=== PATIENT | male | born 1985 | race Hispanic/Latino ===

== ENCOUNTER 2019-07-31 17:09 | Emergency (ER) | payer OTHER, SELFPAY ==
[2019-07-31] MEDS ORDERED: Ketorolac Tromethamine 30 MG/ML VIAL ONE (17:24)
== END 2019-07-31 17:31 | disposition home or self-care (01) ==
LOC: ERS 17:09
DX: J01.00 Acute maxillary sinusitis, unspecified (principal); Z87.891 Personal history of nicotine dependence
CPT/HCPCS: 96372; 99283; J1885

== ENCOUNTER 2022-09-27 14:33 | Emergency (ER) | payer SELFPAY | END 2022-09-27 15:25 | disposition home or self-care (01) | LOC: ERS 14:33 | DX: M62.830 Muscle spasm of back (principal); Z87.891 Personal history of nicotine dependence | CPT/HCPCS: 99283 ==

== ENCOUNTER 2023-01-24 09:22 | Inpatient (IN) | payer SELFPAY ==
[2023-01-24] MEDS ORDERED: Lidocaine 1% (PF) 30 ML VIAL ONE (09:43)
[2023-01-24] MEDS ORDERED: Iopamidol 370 76% 100 ML VIAL ONE (09:43)
[2023-01-24] MEDS ORDERED: Nitroglycerin 50 MG/250 ML BOT 0 ML ONE (09:44)
[2023-01-24] MEDS ORDERED: Adenosine 6 MG/2 ML VIAL ONE (09:44)
[2023-01-24] MEDS ORDERED: Verapamil 5 MG/2 ML VIAL ONE (09:44)
[2023-01-24 09:51] LABS: #Basophils 0.1 thou/uL (0.0-0.2); #Eosinphils 0.3 thou/uL (0.0-0.7); #Monocytes 0.9 thou/uL (0.11-0.59); #Neutrophils 7.3 thou/uL (1.40-6.50); %Basophils 0.6 % (0.0-1.0); %Eosinophils 2.9 % (0.0-10.0); %Lymphocytes 26.7 % (21.0-51.0); %Monocytes 7.8 % (0.0-10.0); %Neutrophils 61.6 % (42.0-75.0); Hemoglobin 16.9 g/dL (14.0-18.0); Mean Corpuscular HGB CONC 33.9 g/dL (32.0-36.0); Mean Corpuscular Hemoglobin 28.5 pg (27.0-31.0); Mean Corpuscular Volume 84.1 fl (78.0-98.0); Platelet Count 504 10x3/uL (130-400); RBC Distribution Width 13.8 % (11.5-14.5); Red Blood Cell (RBC) Count 5.93 mill/uL (4.70-6.10); White Blood Cell (WBC) Count 11.9 10x3/uL (4.8-10.8)
[2023-01-24] MEDS ORDERED: Morphine 4 MG/ML VIAL ONE (10:01)
[2023-01-24] MEDS ORDERED: DOPamine 400 MG/D5W 250 ML 250 ML ONE (10:10)
[2023-01-24] MEDS ORDERED: PHENYLEPHRINE-NS 100 MCG/ML 10 ML SYRINGE ONE (10:10)
[2023-01-24] MEDS ORDERED: DOBUTamine 250 MG/20 ML VIAL ONE (10:12)
[2023-01-24] MEDS ORDERED: Propofol 1,000 MG/100 ML VIAL IV ONE ×2 (10:28→11:51)
[2023-01-24] MEDS ORDERED: PROPOFOL 20 ML ONE (10:28)
[2023-01-24] MEDS ORDERED: Heparin 10,000 UNITS/ 10 ML VIAL ONE (10:28)
[2023-01-24 10:54] LABS: Calcium 10.3 mg/dL (7.8-10.44); Chloride 105 mmol/L (98-107); Sodium 143 mmol/L (136-145)
[2023-01-24 10:55] LABS: Globulin 3.6 g/dL (2.4-3.5); Glucose 156 mg/dL (70-105); Protein, Total 8.6 g/dL (6.0-8.3)
[2023-01-24 10:56] LABS: Anion Gap 24 mmol/L (10-20); Carbon Dioxide 18 mmol/L (22-29)
[2023-01-24 10:57] LABS: Bilirubin, Total 0.4 mg/dL (0.2-1.2)
[2023-01-24 10:58] LABS: Alkaline Phosphatase 76 U/L (40-110); Calc. Creatinine Clearance 0 mL/min (70-130)
[2023-01-24 10:59] LABS: BUN (Urea Nitrogen) 19 mg/dL (8.9-20.6); Estimated GFR 60
[2023-01-24 11:00] LABS: AST (SGOT) 21 U/L (5-34)
[2023-01-24 11:01] LABS: ALT (SGPT) 33 U/L (8-55)
[2023-01-24] MEDS ORDERED: Tirofiban-0.9% Sodium Chloride 250 ML ONE (11:20)
[2023-01-24] MEDS ORDERED: Atropine Sulfate 1 mg/10 ml Syringe ONE (11:20)
[2023-01-24] MEDS ORDERED: Midazolam HCl 2 mg/2 ml Vial ONE (11:25)
[2023-01-24] MEDS ORDERED: TICAGRELOR 90 MG TABLET PO SCH (12:00)
[2023-01-24] MEDS: Sodium Chloride 0.9% 1,000 ML IV SCH ×2 (12:35→16:53)
[2023-01-24] MEDS ORDERED: Lorazepam 2 MG/ML VIAL ONE (12:40)
[2023-01-24] MEDS ORDERED: Fentanyl BOLUS 250 ML IVPB PRN (13:00)
[2023-01-24] MEDS ORDERED: Propofol BOLUS 1,000 MG/100 ML VIAL IV PRN (13:00)
[2023-01-24] MEDS ORDERED: Morphine 2 MG/ML VIAL SLOW IVP PRN (13:00)
[2023-01-24] MEDS ORDERED: Lorazepam 2 MG/ML VIAL SLOW IVP PRN (13:00)
[2023-01-24] MEDS: Fentanyl CADD 100 ML IV SCH (13:00)
[2023-01-24 13:23] LABS: Actual Bicarbonate (HCO3a) 20.1 mEq/L (22-28); Base Excess (BEa) -5.9 mEq/L (-2.0 to +3.0); CO2 Tension 41.4 mmHg (35.0-45.0); Calcium, Ionized (arterial) 1.14 mmol/L (1.12-1.30); Carboxyhemoglobin (COHb) 0.6 gm% (0.0-3.0); Hematocrit-ABG 45 % (42.0-52.0); Hemoglobin (Hb) 15.4 g/dL (14.0-18.0); Potassium - ABG Lab 3.78 mmol/L (3.70-5.30); pH, Arterial 7.305 (7.35-7.45)
[2023-01-24 13:24] LABS: Puncture Site RRA
[2023-01-24 13:56] LABS: Amphetamine Not Detected (NotDetected); Barbiturates Screen Not Detected (NotDetected); Benzodiazepine Screen Not Detected (NotDetected); Cocaine Metabolite Screen Not Detected (NotDetected); Methadone Not Detected (NotDetected); Methamphetamine Not Detected (NotDetected); Opiate Screen Detected (NotDetected); Oxycodone Screen Not Detected (NotDetected); Phencyclidine (PCP) Not Detected (NotDetected); THC/Cannabinoid Screen Not Detected (NotDetected); Tricyclic Screen Not Detected (NotDetected)
[2023-01-24 14:03] VITALS: BMI 37.2
[2023-01-24] MEDS ORDERED: Famotidine/PF 20 mg/2ml Vial SLOW IVP SCH (14:15)
[2023-01-24] MEDS ORDERED: Electrolyte Replacement Protocol 1 EACH FS SCH (16:00)
[2023-01-24] MEDS ORDERED: Electrolyte Replacement Protocol FS PRN (16:30)
[2023-01-24] MEDS: Propofol 1,000 MG/100 ML VIAL IV PRN ×2 (16:42→23:32)
[2023-01-24] MEDS: DOPamine 400 MG/D5W 250 ML 250 ML IVPB SCH ×2 (16:42→23:32)
[2023-01-24] MEDS: Tirofiban-0.9% Sodium Chloride 250 ML IVPB SCH (16:59)
[2023-01-24] MEDS ORDERED: Magnesium 2 GM/50 ML(in water) 2 GM in Premix Bag 1 BAG IVPB SCH (18:45)
[2023-01-24 19:06] LABS: Troponin I 125.828 ng/mL (< 0.028)
[2023-01-24] MEDS: Atorvastatin Calcium 40 MG TAB PO SCH (21:41)
[2023-01-24] MEDS: Famotidine/PF 20 mg/2ml Vial SLOW IVP SCH (21:41)
[2023-01-24] MEDS: TICAGRELOR 90 MG TABLET PO SCH (21:44)
[2023-01-25 01:19] LABS: Troponin I 129.472 ng/mL (< 0.028)
[2023-01-25 01:52] LABS: Magnesium 2.5 mg/dL (1.6-2.6)
[2023-01-25] MEDS: Sodium Chloride 0.9% 1,000 ML IV SCH ×2 (03:33→18:25)
[2023-01-25] MEDS: Tirofiban-0.9% Sodium Chloride 250 ML IVPB SCH (03:33)
[2023-01-25] MEDS: Propofol 1,000 MG/100 ML VIAL IV PRN ×3 (03:43→18:25)
[2023-01-25 03:59] LABS: #Monocytes 1.2 thou/uL (0.11-0.59); #Neutrophils 10.1 thou/uL (1.40-6.50); %Basophils 0.2 % (0.0-1.0); %Eosinophils 0.1 % (0.0-10.0); %Lymphocytes 7.1 % (21.0-51.0); %Monocytes 9.8 % (0.0-10.0); %Neutrophils 82.5 % (42.0-75.0); Hemoglobin 14.1 g/dL (14.0-18.0); Mean Corpuscular HGB CONC 33.4 g/dL (32.0-36.0); Mean Platelet Volume 9.9 fL (7.4-10.4); Platelet Count 434 10x3/uL (130-400); RBC Distribution Width 14.6 % (11.5-14.5); Red Blood Cell (RBC) Count 4.87 mill/uL (4.70-6.10); White Blood Cell (WBC) Count 12.2 10x3/uL (4.8-10.8)
[2023-01-25 04:24] LABS: ALT (SGPT) 114 U/L (8-55); AST (SGOT) 375 U/L (5-34); Alkaline Phosphatase 57 U/L (40-110); Anion Gap 16 mmol/L (10-20); BUN (Urea Nitrogen) 18 mg/dL (8.9-20.6); Bilirubin, Total 0.4 mg/dL (0.2-1.2); Calc. Creatinine Clearance 180 mL/min (70-130); Carbon Dioxide 16 mmol/L (22-29); Chloride 111 mmol/L (98-107); Estimated GFR 101; Globulin 3.1 g/dL (2.4-3.5); Glucose 137 mg/dL (70-105); Potassium 4.3 mmol/L (3.5-5.1); Protein, Total 7.1 g/dL (6.0-8.3); Sodium 139 mmol/L (136-145)
[2023-01-25 05:27] LABS: Mean Corpuscular Volume 86.7 fl (78.0-98.0)
[2023-01-25 07:23] LABS: Actual Bicarbonate (HCO3a) 20.1 mEq/L (22-28); Base Excess (BEa) -2.8 mEq/L (-2.0 to +3.0); CO2 Tension 30.1 mmHg (35.0-45.0); Calcium, Ionized (arterial) 1.15 mmol/L (1.12-1.30); Carboxyhemoglobin (COHb) 0.3 gm% (0.0-3.0); Hematocrit-ABG 41 % (42.0-52.0); Hemoglobin (Hb) 13.9 g/dL (14.0-18.0); O2 Tension (PaO2), arterial 105.6 mmHg (80.0-100.0); Potassium - ABG Lab 3.92 mmol/L (3.70-5.30); pH, Arterial 7.443 (7.35-7.45)
[2023-01-25 07:25] LABS: ALV-art Gradient 141.975 mmHg (0-20); Puncture Site RRA
[2023-01-25] MEDS: Famotidine/PF 20 mg/2ml Vial SLOW IVP SCH ×2 (09:20→23:20)
[2023-01-25] MEDS: Aspirin Chewable 81 MG TAB PO SCH (09:20)
[2023-01-25] MEDS: TICAGRELOR 90 MG TABLET PO SCH ×2 (09:20→23:20)
[2023-01-25] MEDS: Fentanyl CADD 100 ML IV SCH (12:59)
[2023-01-25] MEDS ORDERED: Sodium Chloride 0.9% 1,000 ML IV SCH (18:30)
[2023-01-25] MEDS ORDERED: Furosemide 20 MG/2 ML VIAL SLOW IVP SCH (18:30)
[2023-01-25] MEDS: Atorvastatin Calcium 40 MG TAB PO SCH (23:20)
[2023-01-26] MEDS: Propofol 1,000 MG/100 ML VIAL IV PRN (01:18)
[2023-01-26 07:02] LABS: #Eosinphils 0.1 thou/uL (0.0-0.7); #Monocytes 1.1 thou/uL (0.11-0.59); #Neutrophils 7.2 thou/uL (1.40-6.50); %Basophils 0.4 % (0.0-1.0); %Eosinophils 0.9 % (0.0-10.0); %Lymphocytes 13.5 % (21.0-51.0); %Neutrophils 73.7 % (42.0-75.0); Hemoglobin 12.6 g/dL (14.0-18.0); Mean Corpuscular HGB CONC 33.1 g/dL (32.0-36.0); Mean Corpuscular Volume 87.6 fl (78.0-98.0); Mean Platelet Volume 9.7 fL (7.4-10.4); Platelet Count 352 10x3/uL (130-400); RBC Distribution Width 14.7 % (11.5-14.5); Red Blood Cell (RBC) Count 4.35 mill/uL (4.70-6.10); White Blood Cell (WBC) Count 9.8 10x3/uL (4.8-10.8)
[2023-01-26 07:25] LABS: Lactic Acid 0.8 mmol/L (0.5-2.2)
[2023-01-26 07:27] LABS: Anion Gap 14 mmol/L (10-20); BUN (Urea Nitrogen) 21 mg/dL (8.9-20.6); Calc. Creatinine Clearance 199 mL/min (70-130); Carbon Dioxide 21 mmol/L (22-29); Chloride 110 mmol/L (98-107); Estimated GFR 113; Glucose 92 mg/dL (70-105); Potassium 3.9 mmol/L (3.5-5.1); Sodium 141 mmol/L (136-145)
[2023-01-26] MEDS: Famotidine/PF 20 mg/2ml Vial SLOW IVP SCH ×2 (09:39→20:03)
[2023-01-26] MEDS ORDERED: Piperacillin/Tazobactam 2.25 GM in Sodium Chloride 0.9% 100 ML IVPB SCH ×2 (10:00→14:00)
[2023-01-26] MEDS: TICAGRELOR 90 MG TABLET PO SCH ×2 (13:19→20:03)
[2023-01-26] MEDS: Aspirin Chewable 81 MG TAB PO SCH (13:19)
[2023-01-26] MEDS: Piperacillin/Tazobactam 3.375 GM in Sodium Chloride 0.9% 100 ML IVPB SCH (20:02)
[2023-01-26] MEDS: Atorvastatin Calcium 40 MG TAB PO SCH (20:03)
[2023-01-27] MEDS: Piperacillin/Tazobactam 3.375 GM in Sodium Chloride 0.9% 100 ML IVPB SCH ×3 (03:55→20:34)
[2023-01-27 04:35] LABS: #Basophils 0.1 thou/uL (0.0-0.2); #Eosinphils 0.1 thou/uL (0.0-0.7); #Monocytes 0.9 thou/uL (0.11-0.59); #Neutrophils 8.3 thou/uL (1.40-6.50); %Basophils 0.5 % (0.0-1.0); %Eosinophils 1.2 % (0.0-10.0); %Lymphocytes 10.4 % (21.0-51.0); %Monocytes 8.4 % (0.0-10.0); %Neutrophils 79.1 % (42.0-75.0); Hemoglobin 11.8 g/dL (14.0-18.0); Mean Corpuscular HGB CONC 32.2 g/dL (32.0-36.0); Mean Corpuscular Hemoglobin 28.9 pg (27.0-31.0); Mean Platelet Volume 10.7 fL (7.4-10.4); Platelet Count 366 10x3/uL (130-400); RBC Distribution Width 16.2 % (11.5-14.5); Red Blood Cell (RBC) Count 4.08 mill/uL (4.70-6.10); White Blood Cell (WBC) Count 10.4 10x3/uL (4.8-10.8)
[2023-01-27 06:15] LABS: Anion Gap 13 mmol/L (10-20); BUN (Urea Nitrogen) 16 mg/dL (8.9-20.6); Calc. Creatinine Clearance 222 mL/min (70-130); Carbon Dioxide 25 mmol/L (22-29); Chloride 105 mmol/L (98-107); Estimated GFR 116; Glucose 93 mg/dL (70-105); Potassium 3.7 mmol/L (3.5-5.1); Sodium 139 mmol/L (136-145)
[2023-01-27] MEDS: Aspirin Chewable 81 MG TAB PO SCH (08:25)
[2023-01-27] MEDS: Famotidine/PF 20 mg/2ml Vial SLOW IVP SCH ×2 (08:25→20:35)
[2023-01-27] MEDS: Clopidogrel Bisulfate 75 MG TAB PO SCH (08:25)
[2023-01-27] MEDS: Atorvastatin Calcium 40 MG TAB PO SCH (20:35)
[2023-01-28 04:50] LABS: #Basophils 0.1 thou/uL (0.0-0.2); #Eosinphils 0.3 thou/uL (0.0-0.7); #Monocytes 0.8 thou/uL (0.11-0.59); #Neutrophils 6.3 thou/uL (1.40-6.50); %Basophils 0.6 % (0.0-1.0); %Eosinophils 2.9 % (0.0-10.0); %Lymphocytes 15.8 % (21.0-51.0); %Monocytes 8.7 % (0.0-10.0); %Neutrophils 71.7 % (42.0-75.0); Hemoglobin 11.9 g/dL (14.0-18.0); Mean Corpuscular HGB CONC 33.1 g/dL (32.0-36.0); Mean Corpuscular Hemoglobin 28.7 pg (27.0-31.0); Mean Platelet Volume 9.9 fL (7.4-10.4); Platelet Count 358 10x3/uL (130-400); RBC Distribution Width 13.9 % (11.5-14.5); Red Blood Cell (RBC) Count 4.14 mill/uL (4.70-6.10); White Blood Cell (WBC) Count 8.7 10x3/uL (4.8-10.8)
[2023-01-28] MEDS: Piperacillin/Tazobactam 3.375 GM in Sodium Chloride 0.9% 100 ML IVPB SCH (05:04)
[2023-01-28 05:17] LABS: Anion Gap 16 mmol/L (10-20); BUN (Urea Nitrogen) 13 mg/dL (8.9-20.6); Calc. Creatinine Clearance 237 mL/min (70-130); Calcium 8.9 mg/dL (7.8-10.44); Carbon Dioxide 24 mmol/L (22-29); Chloride 105 mmol/L (98-107); Estimated GFR 118; Glucose 94 mg/dL (70-105); Potassium 3.8 mmol/L (3.5-5.1); Sodium 141 mmol/L (136-145)
[2023-01-28] MEDS: Famotidine/PF 20 mg/2ml Vial SLOW IVP SCH ×2 (09:46→21:31)
[2023-01-28] MEDS: Clopidogrel Bisulfate 75 MG TAB PO SCH (09:46)
[2023-01-28] MEDS: Aspirin Chewable 81 MG TAB PO SCH (09:46)
[2023-01-28] MEDS ORDERED: Losartan 25 MG TAB PO SCH (13:00)
[2023-01-28] MEDS: Meclizine HCl 25 MG TAB PO SCH ×2 (14:18→21:32)
[2023-01-28] MEDS: Atorvastatin Calcium 40 MG TAB PO SCH (21:31)
[2023-01-29] MEDS ORDERED: Nitroglycerin 0.4 MG TAB (25 Tab Bottle) ONE (01:39)
[2023-01-29] MEDS: Nitroglycerin 0.4 MG TAB (25 Tab Bottle) SL PRN (01:50)
[2023-01-29] MEDS ORDERED: Morphine 2 MG/ML VIAL SLOW IVP PRN (01:52)
[2023-01-29] MEDS ORDERED: Mag-Al 1200 mg/1200 mg/30 ML UDCUP PO SCH (02:00)
[2023-01-29 05:14] LABS: Anion Gap 13 mmol/L (10-20); BUN (Urea Nitrogen) 13 mg/dL (8.9-20.6); Calc. Creatinine Clearance 211 mL/min (70-130); Calcium 9.7 mg/dL (7.8-10.44); Carbon Dioxide 29 mmol/L (22-29); Chloride 102 mmol/L (98-107); Estimated GFR 115; Glucose 109 mg/dL (70-105); Potassium 3.9 mmol/L (3.5-5.1); Sodium 140 mmol/L (136-145)
[2023-01-29] MEDS: Meclizine HCl 25 MG TAB PO SCH ×3 (05:39→21:16)
[2023-01-29] MEDS: Clopidogrel Bisulfate 75 MG TAB PO SCH (08:36)
[2023-01-29] MEDS: Aspirin Chewable 81 MG TAB PO SCH (08:36)
[2023-01-29] MEDS: Famotidine/PF 20 mg/2ml Vial SLOW IVP SCH ×2 (08:36→21:16)
[2023-01-29] MEDS: Losartan 25 MG TAB PO SCH (08:37)
[2023-01-29 09:09] LABS: Troponin I 9.236 ng/mL (< 0.028)
[2023-01-29 09:17] LABS: CKMB 2.3 ng/mL (0-6.6)
[2023-01-29 12:44] LABS: CKMB 2.1 ng/mL (0-6.6)
[2023-01-29 12:54] LABS: Critical Call Chem Troponin I DECREASING; Troponin I 8.198 ng/mL (< 0.028)
[2023-01-29 15:49] LABS: Hemoglobin A1c 5.3 % (4.0-6.0)
[2023-01-29] MEDS: Atorvastatin Calcium 40 MG TAB PO SCH (21:16)
[2023-01-30] MEDS: Famotidine/PF 20 mg/2ml Vial SLOW IVP SCH ×2 (10:30→20:45)
[2023-01-30] MEDS: Clopidogrel Bisulfate 75 MG TAB PO SCH (10:31)
[2023-01-30] MEDS: Losartan 25 MG TAB PO SCH (10:31)
[2023-01-30] MEDS: Aspirin Chewable 81 MG TAB PO SCH (10:31)
[2023-01-30 15:07] LABS: Calcium 9.8 mg/dL (7.8-10.44); Chloride 102 mmol/L (98-107); Sodium 137 mmol/L (136-145)
[2023-01-30 15:08] LABS: Glucose 82 mg/dL (70-105)
[2023-01-30 15:09] LABS: Anion Gap 13 mmol/L (10-20); Carbon Dioxide 26 mmol/L (22-29)
[2023-01-30 15:11] LABS: Calc. Creatinine Clearance 220 mL/min (70-130); Estimated GFR 116
[2023-01-30 15:12] LABS: BUN (Urea Nitrogen) 16 mg/dL (8.9-20.6)
[2023-01-30 15:29] LABS: PTT 27.9 sec (22.9-36.1)
[2023-01-30 15:30] LABS: D-Dimer Test 1.65 *mcg/mL (0.27-0.43)
[2023-01-30] MEDS: Atorvastatin Calcium 40 MG TAB PO SCH (20:45)
[2023-01-30] MEDS: Meclizine HCl 25 MG TAB PO SCH ×2 (22:00→22:28)
[2023-01-31 04:38] LABS: Hemoglobin A1c 5.4 % (4.0-6.0)
[2023-01-31 04:54] LABS: Anion Gap 12 mmol/L (10-20); BUN (Urea Nitrogen) 17 mg/dL (8.9-20.6); Calc. Creatinine Clearance 214 mL/min (70-130); Calcium 9.3 mg/dL (7.8-10.44); Carbon Dioxide 25 mmol/L (22-29); Cardiac Risk 6.1 (Less than 4.5); Chloride 103 mmol/L (98-107); Cholesterol 98 mg/dl (< 200 Desired); Estimated GFR 116; Glucose 91 mg/dL (70-105); HDL Cholesterol 16 mg/dL (>60 Neg Risk); LDL Cholesterol, Calculated 63 mg/dL; Potassium 4.4 mmol/L (3.5-5.1); Sodium 136 mmol/L (136-145); Triglycerides 96 mg/dL (Less than 150)
[2023-01-31] MEDS: Meclizine HCl 25 MG TAB PO SCH ×3 (05:55→14:19)
[2023-01-31] MEDS ORDERED: PROPOFOL 0 ML ONE (06:41)
[2023-01-31] MEDS ORDERED: PROPOFOL 20 ML ONE (07:12)
[2023-01-31] MEDS ORDERED: fentaNYL 50 mcg/mL 1 mL Vial ONE (07:12)
[2023-01-31] MEDS: Clopidogrel Bisulfate 75 MG TAB PO SCH (08:49)
[2023-01-31] MEDS: Aspirin Chewable 81 MG TAB PO SCH (08:49)
[2023-01-31] MEDS: Losartan 25 MG TAB PO SCH (08:49)
[2023-01-31] MEDS: Famotidine/PF 20 mg/2ml Vial SLOW IVP SCH (08:49)
[2023-01-31] MEDS: Nitroglycerin 0.4 MG TAB (25 Tab Bottle) SL PRN (09:20)
[2023-01-31 16:41] VITALS: BP 140/88; TEMP 99.1
[2023-02-01] MEDS ORDERED: Losartan 25 MG TAB PO SCH (09:00)
[2023-02-02 18:06] LABS: Cardiolipin IgA Ab 4.8 APL-U/mL (<14 Negative); EliA APS New Method **** NEW METHOD ****
[2023-02-05 16:19] LABS: Activated Protein C Resistance 2.6 ratio (.)
[2023-02-10 09:19] LABS: HEX PHOS LA Tube 1 44.5 SEC; HEX PHOS LA Tube 2 38.4 SEC; Hexagonal Phospholipid Neut 6.1 SEC (0-8.0)
== END 2023-01-31 21:00 | disposition home or self-care (01) | DRG 270 ==
LOC: ERS 09:22 → CCL 09:54 → CCU 11:24 → 2NO 01-27 14:54
PROVIDERS: ADMIT Internal Medicine Cardiovascular Disease; ATTEND Internal Medicine Cardiovascular Disease
PROC: 027136Z Dilation of Coronary Artery, Two Arteries with Three Drug-eluting Intraluminal Devices, Percutaneous Approach (ICD-10-PCS; principal; 2023-01-24)
PROC: 4A023N7 Measurement of Cardiac Sampling and Pressure, Left Heart, Percutaneous Approach (ICD-10-PCS; 2023-01-24)
PROC: B3101ZZ Fluoroscopy of Thoracic Aorta using Low Osmolar Contrast (ICD-10-PCS; 2023-01-24)
PROC: B2111ZZ Fluoroscopy of Multiple Coronary Arteries using Low Osmolar Contrast (ICD-10-PCS; 2023-01-24)
PROC: B2151ZZ Fluoroscopy of Left Heart using Low Osmolar Contrast (ICD-10-PCS; 2023-01-24)
PROC: 5A1945Z Respiratory Ventilation, 24-96 Consecutive Hours (ICD-10-PCS; 2023-01-24)
PROC: 4A133R1 Monitoring of Arterial Saturation, Peripheral, Percutaneous Approach (ICD-10-PCS; 2023-01-24)
PROC: B241ZZ3 Ultrasonography of Multiple Coronary Arteries, Intravascular (ICD-10-PCS; 2023-01-24)
PROC: X2CY3T7 Extirpation of Matter from Great Vessel using Computer-aided Mechanical Aspiration, Percutaneous Approach, New Technology Group 7 (ICD-10-PCS; 2023-01-24)
PROC: B246ZZ4 Ultrasonography of Right and Left Heart, Transesophageal (ICD-10-PCS; 2023-01-31)
PROC: 4A10X4Z Monitoring of Central Nervous Electrical Activity, External Approach (ICD-10-PCS; 2023-01-31)
DX: I21.09 ST elevation (STEMI) myocardial infarction involving other coronary artery of anterior wall (principal); G93.41 Metabolic encephalopathy; J96.01 Acute respiratory failure with hypoxia; R57.0 Cardiogenic shock; I63.9 Cerebral infarction, unspecified; I47.29 Other ventricular tachycardia; E87.20 Acidosis, unspecified; J98.11 Atelectasis; I47.20 Ventricular tachycardia, unspecified; I21.29 ST elevation (STEMI) myocardial infarction involving other sites; I25.10 Atherosclerotic heart disease of native coronary artery without angina pectoris; E66.01 Morbid (severe) obesity due to excess calories; I95.9 Hypotension, unspecified; E87.8 Other disorders of electrolyte and fluid balance, not elsewhere classified; I25.5 Ischemic cardiomyopathy; I10 Essential (primary) hypertension; R42 Dizziness and giddiness; I34.0 Nonrheumatic mitral (valve) insufficiency; Z87.891 Personal history of nicotine dependence; Z98.890 Other specified postprocedural states; Z82.49 Family history of ischemic heart disease and other diseases of the circulatory system; Z68.36 Body mass index [BMI] 36.0-36.9, adult
CPT/HCPCS: 0439T; 36415; 36600; 70551; 71045; 80048; 80053; 80061; 80306; 82553; 82805; 83036; 83090; 83605; 83735; 84443; 84484; 85025; 85300; 85303; 85305; 85307; 85347; 85379; 85598; 85610; 85730; 86147; 92928; 92973; 92978; 92979; 93005; 93010; 93306; 93312; 93458; 93798; 93880; 94002; 94003; 94760; 95712; 95819; 95957; 96374; 96376; 99152; 99153; C1751; C1753; C1769; C1874; C1887; C1894; C9600; J0153; J0461; J1250; J1265; J1644; J1940; J2001; J2060; J2250; J2270; J2272; J2543; J2704; J3010; J3246; J3475; J3490; J7050; Q9967; S0028